=== PATIENT | female | born 1975 | race American Indian/Alaskan Native ===

== ENCOUNTER 2017-05-10 12:28 | Outpatient (CLI) | payer OTHER ==
--- NOTE | 2017-05-10 13:32 | XRay Report ---
RIGHT KNEE, 4 views: History: Right knee pain. The bony architecture is intact without evidence of fracture or dislocation. No significant soft tissue abnormality is seen. IMPRESSION: Right knee within normal limits.
== END 2017-05-10 12:29 | disposition home or self-care (01) ==
LOC: SPVIMAG 12:28
PROVIDERS: ATTEND Orthopaedic Surgery
DX: M25.561 Pain in right knee (principal)